=== PATIENT | female | born 1970 | race Caucasian/White ===

== ENCOUNTER 2024-07-27 15:08 | Emergency (ER) | payer BC, MEDICAID ==
[~2024-07-27] VITALS: Ht 152.4 cm; Wt 63.6 kg
[2024-07-27 15:28] VITALS: TEMP 98.2
[2024-07-27] MEDS ORDERED: LISI-662 PO (15:30)
[2024-07-27] MEDS ORDERED: EMPA10TA3 PO (15:30)
[2024-07-27] MEDS ORDERED: GLIP10TA17 PO (15:30)
[2024-07-27] MEDS ORDERED: METF-1211 PO (15:30)
[2024-07-27 16:13] LABS: BASOPHILS % (AUTO) 0.5 % (0.0-2.0); HEMATOCRIT 42.5 % (36-46); HEMOGLOBIN 14.1 g/dL (12.0-16.0); LYMPHOCYTES # (AUTO) 2.2 K/uL (1.0-4.8); LYMPHOCYTES % (AUTO) 33.1 % (22.0-44.0); MEAN CORPUSCULAR HEMOGLOBIN 28.2 pg (26.0-34.0); MEAN CORPUSCULAR HGB CONC 33.1 G/dL (31.0-37.0); MEAN CORPUSCULAR VOLUME 85 fL (80-100); MONOCYTES # (AUTO) 0.4 K/uL (0.1-1.0); MONOCYTES % (AUTO) 6.4 % (2.0-9.0); NEUTROPHILS # (AUTO) 3.8 K/uL (1.8-7.7); PLATELET COUNT (AUTO) 250 K/uL (150-450); RED BLOOD CELL COUNT(AUTO) 4.99 MIL/uL (4.00-5.20); WHITE BLOOD COUNT (AUTO) 6.6 K/uL (4.5-11.0)
[2024-07-27 16:17] LABS: CALCIUM, TOTAL 9.1 mg/dL (8.8-10.5); CHLORIDE 102 mmol/L (98-107); CREATININE 0.72 mg/dL (0.60-1.30); GLOMERULAR FILTR. RATE CALC > 60 mL/min (>60); POTASSIUM 3.7 mmol/L (3.5-5.1); SODIUM SERUM 137 mmol/L (136-145); UREA NITROGEN, BLOOD 19 mg/dL (7-18)
[2024-07-27 16:29] LABS: ANION GAP 8 mmol/L (8-16); CARBON DIOXIDE 27 mmol/L (22-29); GLUCOSE,RANDOM 254 mg/dL (70-110)
[2024-07-27 16:30] LABS: TROPONIN I-HIGH SENSITIVITY 4 ng/L (<51)
[2024-07-27 16:42] LABS: APPEARANCE,URINE CLEAR (CLEAR); BILIRUBIN,URINE NEGATIVE (NEGATIVE); COLOR,URINE COLORLESS (YELLOW); GLUCOSE, URINE (UA) >=1000 mg/dL (NEGATIVE); KETONES,URINE NEGATIVE (NEGATIVE); LEUKOCYTE ESTERASE ,URINE NEGATIVE (NEGATIVE); NITRATE,URINE NEGATIVE (NEGATIVE); OCCULT BLOOD,URINE NEGATIVE (NEGATIVE); PROTEIN,URINE TRACE mg/dL (NEGATIVE); SPECIFIC GRAVITIY, URINE 1.032 (1.003-1.030); UROBILINOGEN,URINE <=1.0 mg/dL (<=1.0)
[2024-07-27 17:39] LABS: BACTERIA,URINE Rare /HPF (None Seen); RBC,URINE None Seen /HPF (0-2); WBC,URINE 0-2 /HPF (0-5)
[2024-07-27] MEDS: KETOROLAC TROMETHAMINE 30 MG/ML VIAL IM ONE (18:35)
[2024-07-27 21:00] VITALS: BP 121/74; PULSE 78; RESP 16; O2SAT 98
== END 2024-07-27 21:16 | disposition home or self-care (01) ==
LOC: EMS 15:09
DX: R07.89 Other chest pain (principal); E11.9 Type 2 diabetes mellitus without complications; I10 Essential (primary) hypertension; Z79.84 Long term (current) use of oral hypoglycemic drugs; Z79.899 Other long term (current) drug therapy
CPT/HCPCS: 99285; 71045; 80048; 81001; 84484; 85025; 36415; 82962; 93005; 96372; J1885